=== PATIENT | female | born 1940 | race Caucasian/White ===

== ENCOUNTER 2024-02-24 13:59 | Inpatient (IN) ==
[2024-02-24 14:18] LABS: ABS Neutrophils 0.4 10^3/uL (1.5-7.6); Hematocrit 22.8 % (35-45); Hemoglobin 7.9 g/dL (11.5-14.3); Mean Corpuscular Hemoglobin 30.5 pg (27-33); Mean Corpuscular Hgb Conc 34.7 g/dL (31-36); Mean Corpuscular Volume 87.8 fL (80-97); Red Blood Count 2.59 10^6/uL (3.63-4.92); Red Cell Distribution Width 22.8 % (12-17); White Blood Count 0.7 10^3/uL (3.8-11.8)
[2024-02-24 14:55] LABS: Mean Platelet Volume 9.8 fL (7.5-11.2); Platelet Count 41 10^3/uL (150-450)
[2024-02-24 14:58] LABS: Albumin 3.6 g/dL (3.2-5.2); Albumin/Globulin Ratio 1.4 (1-3); Calcium 9.4 mg/dL (8.6-10.3); Creatinine, Serum 0.59 mg/dL (0.51-0.95); Globulin 2.6 g/dL (2-4); Potassium 3.6 mmol/L (3.5-5.0); Total Bilirubin 0.6 mg/dL (0.2-1.0); Total Protein 6.2 g/dL (6.4-8.9); eGFR CKD-EPI 89.4 (>60)
[2024-02-24 15:18] LABS: ABS Lymphocytes 0.2 10^3/uL (1.0-4.8); Eosinophil % 0.9 %; Lymphocyte % 33.5 %
[2024-02-24] MEDS ORDERED: Ondansetron ODT 4 mg TAB 4 MG TAB PO PRN (17:23)
[2024-02-24] MEDS: NS 0.9% 1000 ml BAG 1,000 ML IV SCH (18:47)
[2024-02-24] MEDS: Sulfamethox/Trimethoprim DS TAB 800/160 mg PO SCH (19:14)
[2024-02-24] MEDS: Cefepime 2 GM in Dextrose 2 GM/50 ML BAG IV SCH (19:16)
[2024-02-24 20:21] LABS: % Iron Saturation 21 % (15-55); .Transferrin 143 mg/dL (203-362); Iron 42 ug/dL (50-212); Total Iron Binding Capacity 200 mcg/dL (250-450); Unsaturated Iron Binding 158 ug/dL
[2024-02-24 20:37] LABS: Folate > 20.00 ng/mL (5.90-24.80)
[2024-02-24 20:38] LABS: Vitamin B12 1049 pg/mL (180-914)
[2024-02-24] MEDS: Lactated Ringers 1000 ml BAG 1,000 ML IV SCH (20:56)
[2024-02-24 21:49] LABS: Ferritin 1714.1 ng/mL (11-307)
[2024-02-24 23:44] LABS: Urine Appearance Turbid; Urine Bilirubin Negative (Negative); Urine Blood Trace (Negative); Urine Color Yellow; Urine Glucose Negative (Negative); Urine Ketones Trace (Negative); Urine Nitrite Negative (Negative); Urine Protein 1+ (>=30 mg/dL) (Negative); Urine Specific Gravity 1.033 (1.002-1.030); Urine Urobilinogen Negative (Negative)
[2024-02-25 00:34] LABS: Urine Bacteria Absent /HPF (Absent); Urine Red Blood Cell Absent /HPF (0-Trace); Urine Squamous Epithelial Cell Present /HPF (Absent); Urine White Blood Cell Absent /HPF (0-Trace)
[2024-02-25 07:55] LABS: Albumin 3.1 g/dL (3.2-5.2); Albumin/Globulin Ratio 1.5 (1-3); Calcium 8.6 mg/dL (8.6-10.3); Creatinine, Serum 0.56 mg/dL (0.51-0.95); Globulin 2.1 g/dL (2-4); Potassium 3.6 mmol/L (3.5-5.0); Total Bilirubin 0.7 mg/dL (0.2-1.0); Total Protein 5.2 g/dL (6.4-8.9); eGFR CKD-EPI 90.5 (>60)
[2024-02-25 08:18] LABS: Hematocrit 22.4 % (35-45); Hemoglobin 7.8 g/dL (11.5-14.3); Mean Corpuscular Hemoglobin 31.3 pg (27-33); Mean Corpuscular Volume 89.4 fL (80-97); Mean Platelet Volume 10.6 fL (7.5-11.2); Platelet Count 33 10^3/uL (150-450); Red Cell Distribution Width 20.7 % (12-17); White Blood Count 0.8 10^3/uL (3.8-11.8)
[2024-02-25 09:10] LABS: ABS Lymphocytes 0.4 10^3/uL (1.0-4.8); ABS Neutrophils 0.3 10^3/uL (1.5-7.6); Eosinophil % 0.8 %; Lymphocyte % 55.7 %; Nucleated Red Blood Cells % 0.6 %/100WBC (0.0-0.8)
[2024-02-26 06:43] LABS: Calcium 8.6 mg/dL (8.6-10.3); Creatinine, Serum 0.46 mg/dL (0.51-0.95); Potassium 3.6 mmol/L (3.5-5.0); eGFR CKD-EPI 94.9 (>60)
[2024-02-26 09:06] LABS: Hematocrit 26.4 % (35-45); Hemoglobin 9.2 g/dL (11.5-14.3); Mean Corpuscular Hgb Conc 34.7 g/dL (31-36); Mean Corpuscular Volume 86.4 fL (80-97); Red Blood Count 3.05 10^6/uL (3.63-4.92); Red Cell Distribution Width 19.3 % (12-17); White Blood Count 0.9 10^3/uL (3.8-11.8)
[2024-02-26 09:33] LABS: ABS Lymphocytes 0.4 10^3/uL (1.0-4.8); ABS Monocytes 0.1 10^3/uL (0.0-0.9); ABS Neutrophils 0.4 10^3/uL (1.5-7.6); ABS Nucleated RBC 0.01 10^3/ul; Eosinophil % 0.6 %; Lymphocyte % 46.6 %; Mean Platelet Volume 11.2 fL (7.5-11.2); Nucleated Red Blood Cells % 0.8 %/100WBC (0.0-0.8); Platelet Count 34 10^3/uL (150-450)
[2024-02-27 06:17] LABS: ABS Lymphocytes 0.4 10^3/uL (1.0-4.8); ABS Monocytes 0.1 10^3/uL (0.0-0.9); ABS Neutrophils 0.5 10^3/uL (1.5-7.6); Albumin 3.3 g/dL (3.2-5.2); Albumin/Globulin Ratio 1.5 (1-3); Calcium 8.7 mg/dL (8.6-10.3); Creatinine, Serum 0.48 mg/dL (0.51-0.95); Eosinophil % 0.7 %; Globulin 2.2 g/dL (2-4); Hematocrit 26.6 % (35-45); Hemoglobin 9.6 g/dL (11.5-14.3); Lymphocyte % 40.1 %; Magnesium 1.8 mg/dL (1.9-2.7); Mean Corpuscular Hemoglobin 31.4 pg (27-33); Mean Corpuscular Hgb Conc 36.1 g/dL (31-36); Mean Platelet Volume 10.6 fL (7.5-11.2); Nucleated Red Blood Cells % 0.3 %/100WBC (0.0-0.8); Platelet Count 30 10^3/uL (150-450); Potassium 3.7 mmol/L (3.5-5.0); Red Blood Count 3.05 10^6/uL (3.63-4.92); Red Cell Distribution Width 19.9 % (12-17); Total Bilirubin 0.9 mg/dL (0.2-1.0); Total Protein 5.5 g/dL (6.4-8.9); White Blood Count 1.1 10^3/uL (3.8-11.8); eGFR CKD-EPI 93.9 (>60)
[2024-02-27 10:16] VITALS: BP 129/77
== END 2024-02-27 13:40 | disposition home or self-care (01) | DRG 872 ==
LOC: CHOA 13:59 → SUATTDRO 16:08 → MED 16:08
PROVIDERS: ADMIT Hospitalist; ATTEND Family Medicine